=== PATIENT | male | born 1960 | race Caucasian/White ===

== ENCOUNTER 2019-01-10 13:52 | Inpatient (IN) | payer MEDICAID ==
[~2019-01-10] VITALS: Ht 172.7 cm; Wt 72.6 kg
[2019-01-10 14:53] LABS: GLUCOSE,POINT OF CARE 475 MG/DL (70-110)
[2019-01-10] MEDS ORDERED: SODIUM CHLORIDE 0.9% 1,000 ML IV ONE (15:45)
[2019-01-10] MEDS ORDERED: INSULIN REGULAR, HUMAN 100 UNITS/ML IVP ONE (15:45)
[2019-01-10 16:13] LABS: BASOPHILS % (AUTO) 0.6 % (0.0-2.0); EOSINOPHILS % (AUTO) 0.8 % (1.0-6.0); HEMATOCRIT 34.1 % (41-53); HEMOGLOBIN 10.6 g/dL (13.5-17.5); LYMPHOCYTES # (AUTO) 2.6 K/uL (1.0-4.8); LYMPHOCYTES % (AUTO) 27.7 % (22.0-44.0); MEAN CORPUSCULAR HEMOGLOBIN 22.7 pg (26.0-34.0); MEAN CORPUSCULAR HGB CONC 31.1 G/dL (31.0-37.0); MEAN CORPUSCULAR VOLUME 73 fL (80-100); MONOCYTES # (AUTO) 0.8 K/uL (0.1-1.0); MONOCYTES % (AUTO) 8.2 % (2.0-9.0); NEUTROPHILS % (AUTO) 62.7 % (40.0-70.0); PLATELET COUNT (AUTO) 280 K/uL (150-450); RED BLOOD CELL COUNT(AUTO) 4.67 MIL/uL (4.50-5.90); RED CELL DISTRIBUTION WIDTH 18.2 % (11.5-14.5)
[2019-01-10 16:19] LABS: GLUCOSE,POINT OF CARE 438 MG/DL (70-110)
[2019-01-10 16:27] LABS: ALANINE AMINOTRANSFERASE 80 U/L (12-78); ALBUMIN 3.2 g/dL (3.4-5.0); ALKALINE PHOSPHATASE 69 U/L (46-116); ANION GAP 7 mmol/L (8-16); ASPARTATE AMINOTRANSFERASE 44 U/L (15-37); BILIRUBIN,TOTAL 0.3 mg/dL (0.1-1.0); CALCIUM, TOTAL 9.6 mg/dL (8.8-10.5); CARBON DIOXIDE 27 mmol/L (22-29); CHLORIDE 94 mmol/L (98-107); CREATININE 1.02 mg/dL (0.60-1.30); GLOMERULAR FILTR. RATE CALC > 60 mL/min (>60); POTASSIUM 3.8 mmol/L (3.5-5.1); SODIUM SERUM 128 mmol/L (136-145); UREA NITROGEN, BLOOD 19 mg/dL (7-18)
[2019-01-10 16:31] LABS: GLUCOSE,RANDOM 484 mg/dL (70-110)
[2019-01-10] MEDS ORDERED: PROMETHAZINE HCL 25 MG TABLET PO PRN (17:15)
[2019-01-10] MEDS ORDERED: TUBERCULIN, PURIFIED PROTEIN DERIVATIVE 5 TU/0.1 ML SYRINGE ID ONE (17:15)
[2019-01-10] MEDS ORDERED: HALOPERIDOL 5 MG TABLET PO PRN (17:15)
[2019-01-10] MEDS ORDERED: MAGNESIUM HYDROXIDE SUSPENSION 30 ML UDCUP PO PRN (17:15)
[2019-01-10] MEDS ORDERED: ACETAMINOPHEN 325 MG TABLET PO PRN (17:15)
[2019-01-10] MEDS ORDERED: GuaiFENesin/D-METHORPHAN [SUGAR-FREE] 200-20MG/10 ML SYRUP UDCUP PO PRN (17:15)
[2019-01-10] MEDS ORDERED: MAG HYDROX/AL HYDROX/SIMETH ES 30 ML SUSPENSION UDCUP PO PRN (17:15)
[2019-01-10 17:24] LABS: GLUCOSE,POINT OF CARE 169 MG/DL (70-110)
[2019-01-10 17:34] LABS: AMPHET/METH SCREEN,URINE POSITIVE (NEGATIVE); BARBITURATE SCREEN, URINE NEGATIVE (NEGATIVE); BENZODIAZEPINES SCREEN,URINE NEGATIVE (NEGATIVE); CANNABINOID SCREEN,URINE NEGATIVE (NEGATIVE); COCAINE SCREEN,URINE NEGATIVE (NEGATIVE); METHADONE SCREEN, URINE NEGATIVE (NEGATIVE); OPIATE SCREEN,URINE POSITIVE (NEGATIVE)
[2019-01-10 17:53] LABS: PHENCYCLIDINE SCREEN,URINE NEGATIVE (NEGATIVE)
[2019-01-10] MEDS ORDERED: HALOPERIDOL 10 MG TABLET PO SCH (21:00)
[2019-01-10] MEDS: THIAMINE HCL 100 MG TABLET PO SCH (21:12)
[2019-01-10 21:19] LABS: GLUCOSE,POINT OF CARE 205 MG/DL (70-110)
[2019-01-11 00:20] VITALS: BP 163/101
[2019-01-11 00:50] VITALS: BP 151/94
[2019-01-11] MEDS: LORazepam 2 MG TABLET PO PRN ×2 (00:55→08:16)
[2019-01-11] MEDS: ZOLPIDEM TARTRATE 10 MG TABLET PO PRN (00:55)
[2019-01-11] MEDS ORDERED: PNEUMOCOCCAL VACCINE POLYVALENT 0.5 ML VIAL [PPSV23] IM ONE (05:00)
[2019-01-11 05:24] LABS: GLUCOMETER DEV NAME(LOC) 3E.I; GLUCOSE,POINT OF CARE 320 MG/DL (70-110)
[2019-01-11] MEDS ORDERED: DEXTROSE 50%-WATER 25 GM/50 ML SYRINGE IVP PRN ×2 (07:00→15:15)
[2019-01-11] MEDS ORDERED: INSULIN LISPRO 100 UNITS/ML SQ PRN (07:00)
[2019-01-11] MEDS: FOLIC ACID 1 MG TABLET PO SCH (08:16)
[2019-01-11] MEDS: NALTREXONE HCL 50 MG TABLET PO SCH (08:16)
[2019-01-11] MEDS: LOPERAMIDE HCL 2 MG CAPSULE PO PRN ×2 (08:16→09:40)
[2019-01-11] MEDS: THIAMINE HCL 100 MG TABLET PO SCH ×2 (08:17→16:42)
[2019-01-11] MEDS: HydrOXYzine PAMOATE 50 MG CAPSULE PO PRN (08:18)
[2019-01-11 09:00] VITALS: BP 133/84
[2019-01-11] MEDS ORDERED: FLUoxetine HCL 10 MG CAPSULE PO SCH (09:00)
[2019-01-11] MEDS ORDERED: MULTIVITAMINS WITH MINERALS, THERAPEUTIC TABLET PO SCH (09:00)
[2019-01-11 15:08] LABS: GLUCOMETER DEV NAME(LOC) 3E.I; GLUCOSE,POINT OF CARE 538 MG/DL (70-110)
[2019-01-11] MEDS ORDERED: INSULIN LISPRO 100 UNITS/ML SQ ONE (15:30)
[2019-01-11 16:16] VITALS: BP 136/76
[2019-01-11] MEDS: MetFORMIN HCL 500 MG TABLET PO SCH (16:42)
[2019-01-11] MEDS: NYSTATIN 15 GM POWDER BOTTLE TP SCH (16:42)
[2019-01-11 16:53] LABS: GLUCOMETER DEV NAME(LOC) 3E.I; GLUCOSE,POINT OF CARE 302 MG/DL (70-110)
[2019-01-11] MEDS: INSULIN LISPRO 100 UNITS/ML SQ PRN (17:41)
[2019-01-11] MEDS ORDERED: INSULIN GLARGINE,HUM.REC.ANLOG 100 UNITS/ML SQ SCH (21:00)
[2019-01-11] MEDS ORDERED: FluPHENAZine HCL 10 MG TABLET PO SCH (21:00)
[2019-01-11 21:14] LABS: GLUCOMETER DEV NAME(LOC) 3E.I; GLUCOSE,POINT OF CARE 78 MG/DL (70-110)
[2019-01-12 05:32] VITALS: BP 150/88
[2019-01-12] MEDS: LORazepam 2 MG TABLET PO PRN ×3 (05:36→20:22)
[2019-01-12 05:39] LABS: GLUCOMETER DEV NAME(LOC) 3E.I; GLUCOSE,POINT OF CARE 462 MG/DL (70-110)
[2019-01-12] MEDS: MetFORMIN HCL 500 MG TABLET PO SCH ×2 (06:56→16:35)
[2019-01-12] MEDS: NALTREXONE HCL 50 MG TABLET PO SCH (08:12)
[2019-01-12] MEDS: FOLIC ACID 1 MG TABLET PO SCH (08:12)
[2019-01-12] MEDS: ZINC SULFATE 220 MG CAPSULE PO SCH (08:12)
[2019-01-12] MEDS: THIAMINE HCL 100 MG TABLET PO SCH ×2 (08:12→16:34)
[2019-01-12] MEDS: FLUoxetine HCL 20 MG CAPSULE PO SCH (08:12)
[2019-01-12] MEDS: ASCORBIC ACID 500 MG TABLET PO SCH (08:12)
[2019-01-12] MEDS: HydrOXYzine PAMOATE 50 MG CAPSULE PO PRN ×2 (08:12→13:16)
[2019-01-12] MEDS: MULTIVITAMINS, THERAPEUTIC TABLET PO SCH (08:21)
[2019-01-12] MEDS: NYSTATIN 15 GM POWDER BOTTLE TP SCH ×2 (08:30→16:36)
[2019-01-12] MEDS: INSULIN GLARGINE,HUM.REC.ANLOG 100 UNITS/ML SQ SCH ×2 (08:37→17:36)
[2019-01-12] MEDS ORDERED: ASCORBIC ACID 500 MG TABLET PO SCH (09:00)
[2019-01-12 09:49] VITALS: BP 129/89
[2019-01-12] MEDS: LOPERAMIDE HCL 2 MG CAPSULE PO PRN ×3 (10:45→16:34)
[2019-01-12 11:44] LABS: GLUCOMETER DEV NAME(LOC) 3E.I; GLUCOSE,POINT OF CARE 337 MG/DL (70-110)
[2019-01-12] MEDS: INSULIN LISPRO 100 UNITS/ML SQ PRN ×2 (11:47→17:36)
[2019-01-12] MEDS: FluPHENAZine HCL 5 MG TABLET PO PRN (13:18)
[2019-01-12 16:17] VITALS: BP 144/84
[2019-01-12] MEDS: MUPIROCIN CALCIUM 2% 22 GM OINTMENT NASAL SCH (16:36)
[2019-01-12 16:44] LABS: GLUCOMETER DEV NAME(LOC) 3E.I; GLUCOSE,POINT OF CARE 334 MG/DL (70-110)
[2019-01-12] MEDS: FluPHENAZine HCL 10 MG TABLET PO SCH (20:22)
[2019-01-12 20:53] LABS: GLUCOMETER DEV NAME(LOC) 3E.I; GLUCOSE,POINT OF CARE 127 MG/DL (70-110)
[2019-01-13 02:10] VITALS: BP 136/71
[2019-01-13] MEDS: LOPERAMIDE HCL 2 MG CAPSULE PO PRN (02:13)
[2019-01-13] MEDS: MetFORMIN HCL 500 MG TABLET PO SCH (07:05)
[2019-01-13 09:23] LABS: GLUCOMETER DEV NAME(LOC) 3E.I; GLUCOSE,POINT OF CARE 318 MG/DL (70-110)
[2019-01-13] MEDS: THIAMINE HCL 100 MG TABLET PO SCH ×2 (09:26→17:38)
[2019-01-13] MEDS: MULTIVITAMINS, THERAPEUTIC TABLET PO SCH (09:26)
[2019-01-13] MEDS: FluPHENAZine HCL 5 MG TABLET PO PRN ×2 (09:26→13:36)
[2019-01-13] MEDS: FLUoxetine HCL 20 MG CAPSULE PO SCH (09:26)
[2019-01-13] MEDS: NALTREXONE HCL 50 MG TABLET PO SCH (09:26)
[2019-01-13] MEDS: FOLIC ACID 1 MG TABLET PO SCH (09:26)
[2019-01-13] MEDS: LORazepam 2 MG TABLET PO PRN ×2 (09:26→13:35)
[2019-01-13] MEDS: MUPIROCIN CALCIUM 2% 22 GM OINTMENT NASAL SCH ×2 (09:26→17:41)
[2019-01-13] MEDS: ZINC SULFATE 220 MG CAPSULE PO SCH (09:27)
[2019-01-13] MEDS: NYSTATIN 15 GM POWDER BOTTLE TP SCH ×2 (09:27→17:38)
[2019-01-13] MEDS: ASCORBIC ACID 500 MG TABLET PO SCH (09:28)
[2019-01-13] MEDS: HydrOXYzine PAMOATE 50 MG CAPSULE PO PRN ×2 (09:29→13:35)
[2019-01-13] MEDS: INSULIN GLARGINE,HUM.REC.ANLOG 100 UNITS/ML SQ SCH ×2 (09:34→17:44)
[2019-01-13 12:04] LABS: GLUCOMETER DEV NAME(LOC) 3E.I; GLUCOSE,POINT OF CARE 412 MG/DL (70-110)
[2019-01-13] MEDS: INSULIN LISPRO 100 UNITS/ML SQ PRN ×3 (12:23→20:33)
[2019-01-13 16:22] VITALS: BP 134/78
[2019-01-13 16:44] LABS: GLUCOMETER DEV NAME(LOC) 3E.I; GLUCOSE,POINT OF CARE 153 MG/DL (70-110)
[2019-01-13 20:33] LABS: GLUCOMETER DEV NAME(LOC) 3E.I; GLUCOSE,POINT OF CARE 223 MG/DL (70-110)
[2019-01-13] MEDS: FluPHENAZine HCL 10 MG TABLET PO SCH (20:35)
[2019-01-14 03:58] VITALS: BP 149/91
[2019-01-14] MEDS: LORazepam 2 MG TABLET PO PRN ×4 (03:59→18:12)
[2019-01-14 05:54] LABS: GLUCOMETER DEV NAME(LOC) 3E.I; GLUCOSE,POINT OF CARE 269 MG/DL (70-110)
[2019-01-14] MEDS: INSULIN LISPRO 100 UNITS/ML SQ PRN ×3 (07:13→16:38)
[2019-01-14 08:22] VITALS: BP 148/84
[2019-01-14] MEDS: MUPIROCIN CALCIUM 2% 22 GM OINTMENT NASAL SCH ×2 (08:28→16:57)
[2019-01-14] MEDS: FLUoxetine HCL 20 MG CAPSULE PO SCH (08:29)
[2019-01-14] MEDS: ASCORBIC ACID 500 MG TABLET PO SCH (08:29)
[2019-01-14] MEDS: THIAMINE HCL 100 MG TABLET PO SCH ×2 (08:29→16:28)
[2019-01-14] MEDS: FOLIC ACID 1 MG TABLET PO SCH (08:29)
[2019-01-14] MEDS: NALTREXONE HCL 50 MG TABLET PO SCH (08:29)
[2019-01-14] MEDS: MULTIVITAMINS, THERAPEUTIC TABLET PO SCH (08:29)
[2019-01-14] MEDS: FluPHENAZine HCL 5 MG TABLET PO PRN ×3 (08:29→18:15)
[2019-01-14] MEDS: ZINC SULFATE 220 MG CAPSULE PO SCH (08:30)
[2019-01-14] MEDS: NYSTATIN 15 GM POWDER BOTTLE TP SCH ×2 (08:31→16:57)
[2019-01-14] MEDS: HydrOXYzine PAMOATE 50 MG CAPSULE PO PRN ×2 (08:33→13:09)
[2019-01-14] MEDS: INSULIN GLARGINE,HUM.REC.ANLOG 100 UNITS/ML SQ SCH ×2 (08:38→16:38)
[2019-01-14 12:03] LABS: GLUCOMETER DEV NAME(LOC) 3E.I; GLUCOSE,POINT OF CARE 286 MG/DL (70-110)
[2019-01-14 16:12] VITALS: BP 138/78
[2019-01-14 16:39] LABS: GLUCOMETER DEV NAME(LOC) 3E.I; GLUCOSE,POINT OF CARE 353 MG/DL (70-110)
[2019-01-14] MEDS: FluPHENAZine HCL 10 MG TABLET PO SCH (20:16)
[2019-01-15] MEDS: LOPERAMIDE HCL 2 MG CAPSULE PO PRN (01:09)
[2019-01-15 06:10] LABS: GLUCOMETER DEV NAME(LOC) 3E.I; GLUCOSE,POINT OF CARE 273 MG/DL (70-110)
[2019-01-15] MEDS: FLUoxetine HCL 20 MG CAPSULE PO SCH (08:20)
[2019-01-15] MEDS: NALTREXONE HCL 50 MG TABLET PO SCH (08:20)
[2019-01-15] MEDS: THIAMINE HCL 100 MG TABLET PO SCH ×2 (08:21→16:31)
[2019-01-15] MEDS: MULTIVITAMINS, THERAPEUTIC TABLET PO SCH (08:21)
[2019-01-15] MEDS: ZINC SULFATE 220 MG CAPSULE PO SCH (08:21)
[2019-01-15] MEDS: FOLIC ACID 1 MG TABLET PO SCH (08:21)
[2019-01-15] MEDS: LORazepam 2 MG TABLET PO PRN ×3 (08:21→19:37)
[2019-01-15] MEDS: ASCORBIC ACID 500 MG TABLET PO SCH (08:22)
[2019-01-15] MEDS: NYSTATIN 15 GM POWDER BOTTLE TP SCH ×2 (08:23→16:31)
[2019-01-15] MEDS: MUPIROCIN CALCIUM 2% 22 GM OINTMENT NASAL SCH ×2 (08:23→16:31)
[2019-01-15] MEDS: INSULIN GLARGINE,HUM.REC.ANLOG 100 UNITS/ML SQ SCH ×2 (08:36→16:43)
[2019-01-15 08:43] LABS: GLUCOMETER DEV NAME(LOC) 3E.I; GLUCOSE,POINT OF CARE 375 MG/DL (70-110)
[2019-01-15] MEDS: INSULIN LISPRO 100 UNITS/ML SQ PRN ×4 (14:34→21:09)
[2019-01-15 16:24] VITALS: BP 155/96
[2019-01-15] MEDS: FluPHENAZine HCL 5 MG TABLET PO PRN (16:30)
[2019-01-15] MEDS: HydrOXYzine PAMOATE 50 MG CAPSULE PO PRN (16:31)
[2019-01-15 16:49] LABS: GLUCOMETER DEV NAME(LOC) 3E.I; GLUCOSE,POINT OF CARE 418 MG/DL (70-110)
[2019-01-15 20:43] LABS: GLUCOMETER DEV NAME(LOC) 3E.I; GLUCOSE,POINT OF CARE 292 MG/DL (70-110)
[2019-01-15] MEDS: FluPHENAZine HCL 10 MG TABLET PO SCH (21:10)
[2019-01-16] MEDS: ZOLPIDEM TARTRATE 10 MG TABLET PO PRN ×2 (00:12→22:44)
[2019-01-16] MEDS: LORazepam 2 MG TABLET PO PRN ×4 (00:12→18:12)
[2019-01-16 05:48] LABS: GLUCOMETER DEV NAME(LOC) 3E.I; GLUCOSE,POINT OF CARE 225 MG/DL (70-110)
[2019-01-16 06:23] VITALS: BP 122/70
[2019-01-16 08:00] VITALS: BP 135/75
[2019-01-16] MEDS: THIAMINE HCL 100 MG TABLET PO SCH ×2 (08:14→16:13)
[2019-01-16] MEDS: FOLIC ACID 1 MG TABLET PO SCH (08:14)
[2019-01-16] MEDS: FLUoxetine HCL 20 MG CAPSULE PO SCH (08:14)
[2019-01-16] MEDS: MULTIVITAMINS, THERAPEUTIC TABLET PO SCH (08:14)
[2019-01-16] MEDS: NALTREXONE HCL 50 MG TABLET PO SCH (08:15)
[2019-01-16] MEDS: MUPIROCIN CALCIUM 2% 22 GM OINTMENT NASAL SCH ×2 (08:15→16:25)
[2019-01-16] MEDS: ASCORBIC ACID 500 MG TABLET PO SCH (08:15)
[2019-01-16] MEDS: NYSTATIN 15 GM POWDER BOTTLE TP SCH ×2 (08:16→16:13)
[2019-01-16] MEDS: ZINC SULFATE 220 MG CAPSULE PO SCH (08:16)
[2019-01-16] MEDS: INSULIN GLARGINE,HUM.REC.ANLOG 100 UNITS/ML SQ SCH ×2 (08:53→17:22)
[2019-01-16 11:29] LABS: GLUCOMETER DEV NAME(LOC) 3E.I; GLUCOSE,POINT OF CARE 316 MG/DL (70-110)
[2019-01-16 12:20] VITALS: BP 130/75
[2019-01-16] MEDS: FluPHENAZine HCL 5 MG TABLET PO PRN (12:23)
[2019-01-16] MEDS: INSULIN LISPRO 100 UNITS/ML SQ PRN ×2 (12:25→17:22)
[2019-01-16 16:06] VITALS: BP 124/70
[2019-01-16] MEDS: FluPHENAZine HCL 10 MG TABLET PO SCH (20:31)
[2019-01-16 23:53] LABS: GLUCOMETER DEV NAME(LOC) 3E.I; GLUCOSE,POINT OF CARE 245 MG/DL (70-110)
[2019-01-17 05:34] LABS: GLUCOMETER DEV NAME(LOC) 3E.I; GLUCOSE,POINT OF CARE 282 MG/DL (70-110)
[2019-01-17] MEDS: LORazepam 2 MG TABLET PO PRN ×4 (05:50→21:49)
[2019-01-17 06:48] VITALS: BP 126/84
[2019-01-17] MEDS: MULTIVITAMINS, THERAPEUTIC TABLET PO SCH (08:15)
[2019-01-17] MEDS: FLUoxetine HCL 20 MG CAPSULE PO SCH (08:15)
[2019-01-17] MEDS: FOLIC ACID 1 MG TABLET PO SCH (08:15)
[2019-01-17] MEDS: ZINC SULFATE 220 MG CAPSULE PO SCH (08:15)
[2019-01-17] MEDS: NALTREXONE HCL 50 MG TABLET PO SCH (08:15)
[2019-01-17] MEDS: MUPIROCIN CALCIUM 2% 22 GM OINTMENT NASAL SCH (08:15)
[2019-01-17] MEDS: THIAMINE HCL 100 MG TABLET PO SCH ×2 (08:15→16:16)
[2019-01-17] MEDS: ASCORBIC ACID 500 MG TABLET PO SCH (08:16)
[2019-01-17] MEDS: NYSTATIN 15 GM POWDER BOTTLE TP SCH ×2 (08:19→16:23)
[2019-01-17] MEDS: LOPERAMIDE HCL 2 MG CAPSULE PO PRN ×2 (08:19→16:18)
[2019-01-17] MEDS: INSULIN GLARGINE,HUM.REC.ANLOG 100 UNITS/ML SQ SCH ×2 (08:36→17:31)
[2019-01-17] MEDS: FluPHENAZine HCL 5 MG TABLET PO PRN (08:55)
[2019-01-17 10:44] VITALS: BP 140/78
[2019-01-17 11:49] LABS: GLUCOMETER DEV NAME(LOC) 3E.I; GLUCOSE,POINT OF CARE 382 MG/DL (70-110)
[2019-01-17] MEDS: INSULIN LISPRO 100 UNITS/ML SQ PRN ×2 (13:02→17:32)
[2019-01-17 16:05] VITALS: BP 127/70
[2019-01-17 16:43] LABS: GLUCOMETER DEV NAME(LOC) 3E.I; GLUCOSE,POINT OF CARE 203 MG/DL (70-110)
[2019-01-17 19:58] LABS: GLUCOMETER DEV NAME(LOC) 3E.I; GLUCOSE,POINT OF CARE 231 MG/DL (70-110)
[2019-01-17] MEDS: FluPHENAZine HCL 10 MG TABLET PO SCH (20:15)
[2019-01-18] MEDS: INSULIN GLARGINE,HUM.REC.ANLOG 100 UNITS/ML SQ SCH ×2 (09:00→17:12)
[2019-01-18] MEDS: NYSTATIN 15 GM POWDER BOTTLE TP SCH ×2 (09:00→17:05)
[2019-01-18] MEDS: ZINC SULFATE 220 MG CAPSULE PO SCH (09:09)
[2019-01-18] MEDS: FLUoxetine HCL 20 MG CAPSULE PO SCH (09:09)
[2019-01-18] MEDS: ASCORBIC ACID 500 MG TABLET PO SCH (09:10)
[2019-01-18] MEDS: MULTIVITAMINS, THERAPEUTIC TABLET PO SCH (09:10)
[2019-01-18] MEDS: FluPHENAZine HCL 5 MG TABLET PO PRN ×2 (09:10→13:38)
[2019-01-18] MEDS: FOLIC ACID 1 MG TABLET PO SCH (09:10)
[2019-01-18] MEDS: THIAMINE HCL 100 MG TABLET PO SCH ×2 (09:10→17:05)
[2019-01-18] MEDS: NALTREXONE HCL 50 MG TABLET PO SCH (09:10)
[2019-01-18] MEDS: LORazepam 2 MG TABLET PO PRN ×3 (09:10→21:00)
[2019-01-18] MEDS ORDERED: INSULIN LISPRO 100 UNITS/ML SQ ONE (11:30)
[2019-01-18 11:34] LABS: GLUCOMETER DEV NAME(LOC) 3E.I; GLUCOSE,POINT OF CARE 420 MG/DL (70-110)
[2019-01-18] MEDS: INSULIN LISPRO 100 UNITS/ML SQ PRN ×3 (11:39→21:02)
[2019-01-18 12:46] VITALS: BP 122/73
[2019-01-18 16:29] LABS: GLUCOMETER DEV NAME(LOC) 3E.I; GLUCOSE,POINT OF CARE 196 MG/DL (70-110)
[2019-01-18 17:05] VITALS: BP 129/78
[2019-01-18] MEDS: FluPHENAZine HCL 10 MG TABLET PO SCH (21:01)
[2019-01-18 21:16] LABS: GLUCOMETER DEV NAME(LOC) 3E.I; GLUCOSE,POINT OF CARE 236 MG/DL (70-110)
[2019-01-19 08:06] VITALS: BP 123/70
[2019-01-19] MEDS: NYSTATIN 15 GM POWDER BOTTLE TP SCH ×2 (09:00→16:30)
[2019-01-19] MEDS: FLUoxetine HCL 20 MG CAPSULE PO SCH (09:23)
[2019-01-19] MEDS: LORazepam 2 MG TABLET PO PRN ×3 (09:23→20:58)
[2019-01-19] MEDS: MULTIVITAMINS, THERAPEUTIC TABLET PO SCH (09:23)
[2019-01-19] MEDS: NALTREXONE HCL 50 MG TABLET PO SCH (09:23)
[2019-01-19] MEDS: FluPHENAZine HCL 5 MG TABLET PO PRN ×2 (09:23→13:42)
[2019-01-19] MEDS: FOLIC ACID 1 MG TABLET PO SCH (09:23)
[2019-01-19] MEDS: THIAMINE HCL 100 MG TABLET PO SCH ×2 (09:23→16:30)
[2019-01-19] MEDS: ASCORBIC ACID 500 MG TABLET PO SCH (09:23)
[2019-01-19] MEDS: LOPERAMIDE HCL 2 MG CAPSULE PO PRN ×3 (09:31→15:05)
[2019-01-19] MEDS: INSULIN GLARGINE,HUM.REC.ANLOG 100 UNITS/ML SQ SCH ×2 (09:34→17:11)
[2019-01-19 09:38] LABS: GLUCOMETER DEV NAME(LOC) 3E.I; GLUCOSE,POINT OF CARE 276 MG/DL (70-110)
[2019-01-19 11:39] LABS: GLUCOMETER DEV NAME(LOC) 3E.I; GLUCOSE,POINT OF CARE 286 MG/DL (70-110)
[2019-01-19] MEDS: INSULIN LISPRO 100 UNITS/ML SQ PRN ×2 (11:48→17:12)
[2019-01-19] MEDS ORDERED: NALT50TA PO (12:34)
[2019-01-19] MEDS ORDERED: FLUP10 PO ×2 (12:34→14:58)
[2019-01-19] MEDS ORDERED: FLUO-191 PO ×2 (12:34→14:58)
[2019-01-19] MEDS ORDERED: INSLAN SQ (14:58)
[2019-01-19] MEDS ORDERED: NALT50TA6 PO (14:58)
[2019-01-19] MEDS ORDERED: THIA100T67 PO (14:58)
[2019-01-19] MEDS ORDERED: ASCO500 PO (14:58)
[2019-01-19] MEDS ORDERED: NYST30CR9 TP (14:58)
[2019-01-19] MEDS ORDERED: FOLI1 PO (14:58)
[2019-01-19] MEDS ORDERED: MULT-1239 PO (14:58)
[2019-01-19 16:04] VITALS: BP 121/83
[2019-01-19 16:34] LABS: GLUCOMETER DEV NAME(LOC) 3E.I; GLUCOSE,POINT OF CARE 257 MG/DL (70-110)
[2019-01-19] MEDS: FluPHENAZine HCL 10 MG TABLET PO SCH (20:41)
[2019-01-19 20:57] VITALS: BP 115/69
[2019-01-19 20:59] LABS: GLUCOMETER DEV NAME(LOC) 3E.I; GLUCOSE,POINT OF CARE 170 MG/DL (70-110)
[2019-01-20] MEDS: NYSTATIN 15 GM POWDER BOTTLE TP SCH (09:00)
[2019-01-20] MEDS: INSULIN GLARGINE,HUM.REC.ANLOG 100 UNITS/ML SQ SCH (09:00)
[2019-01-20] MEDS: FluPHENAZine HCL 5 MG TABLET PO PRN (09:19)
[2019-01-20] MEDS: FLUoxetine HCL 20 MG CAPSULE PO SCH (09:19)
[2019-01-20] MEDS: MULTIVITAMINS, THERAPEUTIC TABLET PO SCH (09:20)
[2019-01-20] MEDS: LORazepam 2 MG TABLET PO PRN (09:20)
[2019-01-20] MEDS: FOLIC ACID 1 MG TABLET PO SCH (09:20)
[2019-01-20] MEDS: LOPERAMIDE HCL 2 MG CAPSULE PO PRN (09:20)
[2019-01-20] MEDS: NALTREXONE HCL 50 MG TABLET PO SCH (09:20)
[2019-01-20] MEDS: ASCORBIC ACID 500 MG TABLET PO SCH (09:20)
== END 2019-01-20 11:00 | disposition home or self-care (01) | DRG 750 ==
LOC: EMS 13:53 → 3EI 01-11 00:09
PROVIDERS: ADMIT Psychiatry & Neurology Psychiatry; ATTEND Psychiatry & Neurology Psychiatry
DX: F25.1 Schizoaffective disorder, depressive type (principal); E11.51 Type 2 diabetes mellitus with diabetic peripheral angiopathy without gangrene; R45.851 Suicidal ideations; E11.65 Type 2 diabetes mellitus with hyperglycemia; B35.6 Tinea cruris; F15.10 Other stimulant abuse, uncomplicated; B36.9 Superficial mycosis, unspecified; F17.210 Nicotine dependence, cigarettes, uncomplicated; F19.959 Other psychoactive substance use, unspecified with psychoactive substance-induced psychotic disorder, unspecified; F32.9 Major depressive disorder, single episode, unspecified; R26.9 Unspecified abnormalities of gait and mobility; F41.9 Anxiety disorder, unspecified; F90.9 Attention-deficit hyperactivity disorder, unspecified type; Z59.0 Homelessness; Z89.512 Acquired absence of left leg below knee; Z89.511 Acquired absence of right leg below knee; Z91.14 Patient's other noncompliance with medication regimen; Z79.4 Long term (current) use of insulin
CPT/HCPCS: 87081; G0480; J1815; J7030

== ENCOUNTER 2019-03-02 04:50 | Emergency (ER) | payer MEDICAID ==
[~2019-03-02] VITALS: Ht 177.8 cm; Wt 77.3 kg
[~2019-03-02 04:50] MED LIST: ASCO500 PO; FLUO-191 PO; FLUP10 PO; INSLAN SQ; MULT-1239 PO; NALT50TA PO
[2019-03-02] MEDS ORDERED: MORPHINE SULFATE 4 MG/ML SYRINGE IM ONE (05:00)
[2019-03-02] MEDS ORDERED: SODIUM CHLORIDE 0.9% 1,000 ML IV ONE ×2 (05:00→07:00)
[2019-03-02] MEDS ORDERED: DOXY25SU3 PO (05:07)
[2019-03-02] MEDS ORDERED: CEPH500 PO (05:07)
[2019-03-02] MEDS ORDERED: INSU100V36 (05:07)
[2019-03-02] MEDS: ONDANSETRON HCL 4 MG/2 ML VIAL IM ONE ×2 (05:12→05:38)
[2019-03-02] MEDS ORDERED: INSULIN REGULAR, HUMAN 100 UNITS/ML IVP ONE (05:15)
[2019-03-02] MEDS ORDERED: LORazepam 2 MG/ML VIAL IVP ONE (05:15)
[2019-03-02] MEDS ORDERED: LORazepam 2 MG/ML VIAL IM ONE (05:30)
[2019-03-02] MEDS ORDERED: ONDANSETRON HCL 4 MG/2 ML VIAL IVP ONE (05:45)
[2019-03-02 06:07] LABS: BASOPHILS % (AUTO) 0.5 % (0.0-2.0); EOSINOPHILS % (AUTO) 0.8 % (1.0-6.0); HEMATOCRIT 39.4 % (41-53); HEMOGLOBIN 12.7 g/dL (13.5-17.5); LYMPHOCYTES # (AUTO) 1.8 K/uL (1.0-4.8); LYMPHOCYTES % (AUTO) 26.2 % (22.0-44.0); MEAN CORPUSCULAR HEMOGLOBIN 24.2 pg (26.0-34.0); MEAN CORPUSCULAR HGB CONC 32.1 G/dL (31.0-37.0); MEAN CORPUSCULAR VOLUME 75 fL (80-100); MONOCYTES # (AUTO) 0.5 K/uL (0.1-1.0); MONOCYTES % (AUTO) 7.3 % (2.0-9.0); NEUTROPHILS # (AUTO) 4.4 K/uL (1.8-7.7); NEUTROPHILS % (AUTO) 65.2 % (40.0-70.0); PLATELET COUNT (AUTO) 174 K/uL (150-450); RED BLOOD CELL COUNT(AUTO) 5.23 MIL/uL (4.50-5.90)
[2019-03-02 06:45] LABS: GLUCOSE,POINT OF CARE 363 MG/DL (70-110)
[2019-03-02 06:46] LABS: LACTIC ACID 3.8 mmol/L (0.4-2.0)
[2019-03-02 06:48] LABS: ALANINE AMINOTRANSFERASE 99 U/L (12-78); ALBUMIN 3.5 g/dL (3.4-5.0); ALKALINE PHOSPHATASE 77 U/L (46-116); ANION GAP 14 mmol/L (8-16); ASPARTATE AMINOTRANSFERASE 84 U/L (15-37); BILIRUBIN,TOTAL 0.6 mg/dL (0.1-1.0); CALCIUM, TOTAL 9.7 mg/dL (8.8-10.5); CARBON DIOXIDE 24 mmol/L (22-29); CHLORIDE 93 mmol/L (98-107); CREATININE 1.16 mg/dL (0.60-1.30); GLOMERULAR FILTR. RATE CALC > 60 mL/min (>60); LIPASE 171 U/L (73-393); POTASSIUM 3.7 mmol/L (3.5-5.1); SODIUM SERUM 131 mmol/L (136-145); TOTAL PROTEIN, SERUM 7.5 g/dL (6.4-8.2)
[2019-03-02 06:49] LABS: GLUCOSE,RANDOM 502 mg/dL (70-110)
[2019-03-02 06:56] LABS: UREA NITROGEN, BLOOD 12 mg/dL (7-18)
[2019-03-02 08:23] LABS: AMPHET/METH SCREEN,URINE POSITIVE (NEGATIVE); APPEARANCE,URINE CLOUDY (CLEAR); BARBITURATE SCREEN, URINE NEGATIVE (NEGATIVE); BENZODIAZEPINES SCREEN,URINE NEGATIVE (NEGATIVE); BILIRUBIN,URINE NEGATIVE (NEGATIVE); CANNABINOID SCREEN,URINE NEGATIVE (NEGATIVE); COCAINE SCREEN,URINE NEGATIVE (NEGATIVE); GLUCOSE, URINE (UA) >=1000 mg/dL (NEGATIVE); KETONES,URINE 40 mg/dL (NEGATIVE); LEUKOCYTE ESTERASE ,URINE MODERATE (NEGATIVE); METHADONE SCREEN, URINE NEGATIVE (NEGATIVE); NITRATE,URINE NEGATIVE (NEGATIVE); OCCULT BLOOD,URINE MODERATE (NEGATIVE); OPIATE SCREEN,URINE POSITIVE (NEGATIVE); PH,URINE 7.5 (5.0-8.0); PROTEIN,URINE TRACE (NEGATIVE)
[2019-03-02 08:24] LABS: PHENCYCLIDINE SCREEN,URINE NEGATIVE (NEGATIVE)
[2019-03-02 08:35] LABS: BACTERIA,URINE Moderate /HPF (None Seen); RBC,URINE 26-50 /HPF (0-2); WBC,URINE 26-50 /HPF (0-5)
[2019-03-02] MEDS ORDERED: CefTRIAXone 1 GM/DEXTROSE 50 ML IV ONE (09:00)
[2019-03-02 10:02] LABS: GLUCOSE,POINT OF CARE 334 MG/DL (70-110)
[2019-03-02 13:05] VITALS: BP 132/85
== END 2019-03-02 13:56 | disposition home or self-care (01) ==
LOC: EMS 04:52
DX: N39.0 Urinary tract infection, site not specified (principal); E11.65 Type 2 diabetes mellitus with hyperglycemia; F11.23 Opioid dependence with withdrawal; F32.9 Major depressive disorder, single episode, unspecified; F41.9 Anxiety disorder, unspecified; F15.90 Other stimulant use, unspecified, uncomplicated; F17.210 Nicotine dependence, cigarettes, uncomplicated; Z79.4 Long term (current) use of insulin
CPT/HCPCS: 36415; 80053; 80307; 81001; 82009; 82962; 83605; 83690; 84484; 85025; 87040; 87086; 93005; 96361; 96365; 96372; 96375; 99284; J0696; J1815; J2060; J2270; J2405; J7030

== ENCOUNTER 2021-07-01 16:29 | Inpatient (IN) | payer MEDICAID, OTHER ==
[~2021-07-01] VITALS: Ht 129.5 cm; Wt 76.2 kg
[~2021-07-01 16:29] MED LIST changes: +CEPH500C3 PO; +DOXY25SU3 PO; -FLUO-191 PO; -FLUP10 PO; +INSU100V36; -MULT-1239 PO; -NALT50TA PO
[2021-07-01 19:59] LABS: COVID AG,FIA SOURCE NASOPHARYNGEAL
[2021-07-01] MEDS ORDERED: QUEtiapine FUMARATE 100 MG TABLET PO ONE (20:00)
[2021-07-01 20:02] LABS: BASOPHILS % (AUTO) 0.4 % (0.0-2.0); EOSINOPHILS % (AUTO) 5.9 % (1.0-6.0); HEMOGLOBIN 11.3 g/dL (13.5-17.5); LYMPHOCYTES # (AUTO) 1.9 K/uL (1.0-4.8); LYMPHOCYTES % (AUTO) 30.1 % (22.0-44.0); MEAN CORPUSCULAR HEMOGLOBIN 30.2 pg (26.0-34.0); MEAN CORPUSCULAR HGB CONC 34.4 G/dL (31.0-37.0); MEAN CORPUSCULAR VOLUME 88 fL (80-100); MONOCYTES # (AUTO) 0.5 K/uL (0.1-1.0); MONOCYTES % (AUTO) 7.9 % (2.0-9.0); NEUTROPHILS # (AUTO) 3.4 K/uL (1.8-7.7); NEUTROPHILS % (AUTO) 55.7 % (40.0-70.0); PLATELET COUNT (AUTO) 105 K/uL (150-450); RED BLOOD CELL COUNT(AUTO) 3.76 MIL/uL (4.50-5.90); RED CELL DISTRIBUTION WIDTH 12.8 % (11.5-14.5)
[2021-07-01 20:15] LABS: ANION GAP 6 mmol/L (8-16); CALCIUM, TOTAL 8.5 mg/dL (8.8-10.5); CARBON DIOXIDE 28 mmol/L (22-29); CHLORIDE 102 mmol/L (98-107); CREATININE 0.72 mg/dL (0.60-1.30); GLOMERULAR FILTR. RATE CALC > 60 mL/min (>60); GLUCOSE,RANDOM 285 mg/dL (70-110); POTASSIUM 4.1 mmol/L (3.5-5.1); SODIUM SERUM 136 mmol/L (136-145); UREA NITROGEN, BLOOD 16 mg/dL (7-18)
[2021-07-01 20:20] LABS: ALANINE AMINOTRANSFERASE 81 U/L (12-78); ALBUMIN 2.8 g/dL (3.4-5.0); ALKALINE PHOSPHATASE 78 U/L (46-116); ASPARTATE AMINOTRANSFERASE 61 U/L (15-37); BILIRUBIN,TOTAL 0.3 mg/dL (0.1-1.0); TOTAL PROTEIN, SERUM 6.3 g/dL (6.4-8.2)
[2021-07-02 00:45] VITALS: BP 151/85
[2021-07-02] MEDS: ASCORBIC ACID 500 MG TABLET PO SCH (08:52)
[2021-07-02] MEDS: LORazepam 2 MG TABLET PO PRN ×3 (08:52→20:55)
[2021-07-02 09:00] LABS: GLUCOMETER DEV NAME(LOC) 3EX.; GLUCOSE,POINT OF CARE 233 MG/DL (70-110)
[2021-07-02] MEDS: INSULIN GLARGINE,HUM.REC.ANLOG 100 UNITS/ML SQ SCH ×2 (09:01→16:51)
[2021-07-02] MEDS ORDERED: DEXTROSE 50%-WATER 25 GM/50 ML SYRINGE IVP PRN (10:15)
[2021-07-02] MEDS: CEPHALEXIN MONOHYDRATE 500 MG CAPSULE PO SCH ×4 (11:32→20:19)
[2021-07-02] MEDS: INSULIN LISPRO 100 UNITS/ML SQ PRN ×2 (11:34→16:55)
[2021-07-02 11:36] LABS: GLUCOMETER DEV NAME(LOC) 3EX.; GLUCOSE,POINT OF CARE 198 MG/DL (70-110)
[2021-07-02] MEDS ORDERED: MAG HYDROX/AL HYDROX/SIMETH ES 30 ML SUSPENSION UDCUP PO PRN (12:15)
[2021-07-02] MEDS ORDERED: NICOTINE 14 MG/24 HOUR PATCH TD PRN (12:15)
[2021-07-02] MEDS ORDERED: GuaiFENesin/D-METHORPHAN [SUGAR-FREE] 200-20MG/10 ML SYRUP UDCUP PO PRN (12:15)
[2021-07-02] MEDS ORDERED: MAGNESIUM HYDROXIDE SUSPENSION 30 ML UDCUP PO PRN (12:15)
[2021-07-02] MEDS ORDERED: ONDANSETRON HCL 4 MG TABLET PO PRN (12:15)
[2021-07-02] MEDS ORDERED: PETROLATUM,WHITE 28 GM JELLY TP PRN (12:15)
[2021-07-02] MEDS ORDERED: IBUPROFEN 400 MG TABLET PO PRN (12:15)
[2021-07-02] MEDS ORDERED: DOCUSATE SODIUM 100 MG CAPSULE PO PRN (12:15)
[2021-07-02] MEDS ORDERED: ALBUTEROL SULFATE HFA 90 MCG/PUFF 8 GM INHALER IH PRN (12:15)
[2021-07-02] MEDS ORDERED: LOPERAMIDE HCL 2 MG CAPSULE PO PRN (12:15)
[2021-07-02] MEDS ORDERED: CloNIDine HCL 0.1 MG TABLET PO PRN (12:15)
[2021-07-02] MEDS ORDERED: ACETAMINOPHEN 325 MG TABLET PO PRN (12:15)
[2021-07-02 16:14] VITALS: BP 140/74
[2021-07-02] MEDS: RisperiDONE 2 MG TABLET PO SCH (16:14)
[2021-07-02 17:17] LABS: GLUCOMETER DEV NAME(LOC) 3EX.; GLUCOSE,POINT OF CARE 386 MG/DL (70-110)
[2021-07-02 21:13] LABS: GLUCOMETER DEV NAME(LOC) 3EX.; GLUCOSE,POINT OF CARE 402 MG/DL (70-110)
[2021-07-02] MEDS ORDERED: INSULIN LISPRO 100 UNITS/ML SQ ONE (21:15)
[2021-07-03 05:29] LABS: GLUCOMETER DEV NAME(LOC) 3EX.; GLUCOSE,POINT OF CARE 177 MG/DL (70-110)
[2021-07-03] MEDS: INSULIN LISPRO 100 UNITS/ML SQ PRN ×4 (07:05→21:58)
[2021-07-03 07:57] LABS: CHOL/HDL RATIO 3.5 (4.2-7.3)
[2021-07-03] MEDS: CEPHALEXIN MONOHYDRATE 500 MG CAPSULE PO SCH ×4 (08:21→20:19)
[2021-07-03] MEDS: RisperiDONE 2 MG TABLET PO SCH ×2 (08:21→16:18)
[2021-07-03] MEDS: ASCORBIC ACID 500 MG TABLET PO SCH (08:22)
[2021-07-03] MEDS: LORazepam 2 MG TABLET PO PRN ×2 (08:22→13:40)
[2021-07-03 08:31] VITALS: BP 148/86
[2021-07-03] MEDS ORDERED: ASCORBIC ACID 500 MG TABLET PO SCH (09:00)
[2021-07-03] MEDS: INSULIN GLARGINE,HUM.REC.ANLOG 100 UNITS/ML SQ SCH ×2 (09:52→17:01)
[2021-07-03 11:39] LABS: GLUCOMETER DEV NAME(LOC) 3EX.; GLUCOSE,POINT OF CARE 231 MG/DL (70-110)
[2021-07-03 16:03] VITALS: BP 123/78
[2021-07-03 17:02] LABS: GLUCOMETER DEV NAME(LOC) 3EX.; GLUCOSE,POINT OF CARE 279 MG/DL (70-110)
[2021-07-03 20:25] LABS: GLUCOMETER DEV NAME(LOC) 3EX.; GLUCOSE,POINT OF CARE 198 MG/DL (70-110)
[2021-07-04 05:25] LABS: GLUCOMETER DEV NAME(LOC) 3EX.; GLUCOSE,POINT OF CARE 253 MG/DL (70-110)
[2021-07-04] MEDS: INSULIN LISPRO 100 UNITS/ML SQ PRN ×3 (07:00→17:11)
[2021-07-04 08:00] VITALS: BP 127/85
[2021-07-04] MEDS: RisperiDONE 2 MG TABLET PO SCH ×2 (08:46→16:04)
[2021-07-04] MEDS: CEPHALEXIN MONOHYDRATE 500 MG CAPSULE PO SCH ×4 (08:46→20:05)
[2021-07-04] MEDS: ASCORBIC ACID 500 MG TABLET PO SCH (08:46)
[2021-07-04] MEDS: INSULIN GLARGINE,HUM.REC.ANLOG 100 UNITS/ML SQ SCH ×2 (08:49→17:11)
[2021-07-04 13:02] LABS: GLUCOMETER DEV NAME(LOC) 3EX.; GLUCOSE,POINT OF CARE 312 MG/DL (70-110)
[2021-07-04 16:01] VITALS: BP 133/94
[2021-07-04] MEDS: MUPIROCIN CALCIUM 2% 22 GM OINTMENT TP SCH (16:06)
[2021-07-04 16:45] LABS: GLUCOMETER DEV NAME(LOC) 3EX.; GLUCOSE,POINT OF CARE 214 MG/DL (70-110)
[2021-07-04 20:05] VITALS: BP 128/85
[2021-07-04] MEDS: LORazepam 2 MG TABLET PO PRN (20:05)
[2021-07-05] MEDS: LORazepam 2 MG TABLET PO PRN (09:43)
[2021-07-05] MEDS: ASCORBIC ACID 500 MG TABLET PO SCH (09:43)
[2021-07-05] MEDS: RisperiDONE 2 MG TABLET PO SCH ×2 (09:43→16:25)
[2021-07-05] MEDS: CEPHALEXIN MONOHYDRATE 500 MG CAPSULE PO SCH ×4 (09:43→21:03)
[2021-07-05] MEDS: MUPIROCIN CALCIUM 2% 22 GM OINTMENT TP SCH ×2 (09:43→16:25)
[2021-07-05] MEDS: INSULIN GLARGINE,HUM.REC.ANLOG 100 UNITS/ML SQ SCH ×2 (09:44→17:00)
[2021-07-05 09:54] LABS: GLUCOMETER DEV NAME(LOC) 3EX.; GLUCOSE,POINT OF CARE 243 MG/DL (70-110)
[2021-07-06] MEDS: CEPHALEXIN MONOHYDRATE 500 MG CAPSULE PO SCH ×4 (09:07→21:00)
[2021-07-06] MEDS: RisperiDONE 2 MG TABLET PO SCH ×2 (09:07→16:13)
[2021-07-06] MEDS: MUPIROCIN CALCIUM 2% 22 GM OINTMENT TP SCH ×2 (09:14→17:04)
[2021-07-06] MEDS: ASCORBIC ACID 500 MG TABLET PO SCH (09:14)
[2021-07-06] MEDS: INSULIN GLARGINE,HUM.REC.ANLOG 100 UNITS/ML SQ SCH ×2 (09:22→17:06)
[2021-07-06 09:29] LABS: GLUCOMETER DEV NAME(LOC) 3EX.; GLUCOSE,POINT OF CARE 276 MG/DL (70-110)
[2021-07-06 11:51] LABS: GLUCOMETER DEV NAME(LOC) 3EX.; GLUCOSE,POINT OF CARE 235 MG/DL (70-110)
[2021-07-06] MEDS: INSULIN LISPRO 100 UNITS/ML SQ PRN ×2 (12:29→17:06)
[2021-07-06] MEDS: LORazepam 2 MG TABLET PO PRN ×2 (13:03→19:09)
[2021-07-06 16:43] LABS: GLUCOMETER DEV NAME(LOC) 3EX.; GLUCOSE,POINT OF CARE 194 MG/DL (70-110)
[2021-07-06 16:49] VITALS: BP 115/79
[2021-07-07 02:31] VITALS: BP 126/82
[2021-07-07] MEDS: ZOLPIDEM TARTRATE 10 MG TABLET PO PRN (02:36)
[2021-07-07] MEDS: CEPHALEXIN MONOHYDRATE 500 MG CAPSULE PO SCH ×4 (10:36→20:01)
[2021-07-07] MEDS: ASCORBIC ACID 500 MG TABLET PO SCH (10:37)
[2021-07-07] MEDS: MUPIROCIN CALCIUM 2% 22 GM OINTMENT TP SCH ×2 (10:37→16:23)
[2021-07-07] MEDS: LORazepam 2 MG TABLET PO PRN ×3 (10:39→20:01)
[2021-07-07] MEDS: RisperiDONE 2 MG TABLET PO SCH ×2 (10:39→16:21)
[2021-07-07] MEDS: INSULIN GLARGINE,HUM.REC.ANLOG 100 UNITS/ML SQ SCH ×2 (10:41→17:59)
[2021-07-07 10:47] LABS: GLUCOMETER DEV NAME(LOC) 3EX.; GLUCOSE,POINT OF CARE 254 MG/DL (70-110)
[2021-07-07 11:50] LABS: GLUCOMETER DEV NAME(LOC) 3EX.; GLUCOSE,POINT OF CARE 222 MG/DL (70-110)
[2021-07-07] MEDS: INSULIN LISPRO 100 UNITS/ML SQ PRN ×2 (11:53→17:59)
[2021-07-07 15:07] LABS: COVID AG,FIA SOURCE NASAL SWAB
[2021-07-07 17:07] VITALS: BP 139/90
[2021-07-07 17:12] LABS: GLUCOMETER DEV NAME(LOC) 3EX.; GLUCOSE,POINT OF CARE 184 MG/DL (70-110)
[2021-07-08] MEDS: CEPHALEXIN MONOHYDRATE 500 MG CAPSULE PO SCH ×4 (10:18→20:09)
[2021-07-08] MEDS: RisperiDONE 2 MG TABLET PO SCH ×2 (10:18→16:09)
[2021-07-08] MEDS: ASCORBIC ACID 500 MG TABLET PO SCH (10:19)
[2021-07-08] MEDS: MUPIROCIN CALCIUM 2% 22 GM OINTMENT TP SCH ×2 (10:19→16:10)
[2021-07-08 11:39] LABS: GLUCOMETER DEV NAME(LOC) 3EX.; GLUCOSE,POINT OF CARE 144 MG/DL (70-110)
[2021-07-08] MEDS: INSULIN GLARGINE,HUM.REC.ANLOG 100 UNITS/ML SQ SCH ×2 (11:50→17:59)
[2021-07-08] MEDS: INSULIN LISPRO 100 UNITS/ML SQ PRN ×2 (11:51→18:00)
[2021-07-08 12:45] VITALS: BP 118/68
[2021-07-08] MEDS: LORazepam 2 MG TABLET PO PRN ×3 (12:50→21:04)
[2021-07-08 13:55] VITALS: BP 138/70
[2021-07-08 16:22] VITALS: BP 140/89
[2021-07-08 17:00] VITALS: BP 142/78
[2021-07-08 17:14] LABS: GLUCOMETER DEV NAME(LOC) 3EX.; GLUCOSE,POINT OF CARE 236 MG/DL (70-110)
[2021-07-08 21:04] VITALS: BP 138/69
[2021-07-09] MEDS: ZOLPIDEM TARTRATE 10 MG TABLET PO PRN (00:39)
[2021-07-09] MEDS: LORazepam 2 MG TABLET PO PRN ×4 (02:20→19:28)
[2021-07-09 02:24] VITALS: BP 145/92
[2021-07-09] MEDS: HALOPERIDOL 5 MG TABLET PO PRN (06:14)
[2021-07-09] MEDS: MUPIROCIN CALCIUM 2% 22 GM OINTMENT TP SCH (08:09)
[2021-07-09] MEDS: RisperiDONE 2 MG TABLET PO SCH ×2 (08:09→16:12)
[2021-07-09] MEDS: ASCORBIC ACID 500 MG TABLET PO SCH (08:09)
[2021-07-09] MEDS: INSULIN GLARGINE,HUM.REC.ANLOG 100 UNITS/ML SQ SCH ×2 (08:16→17:00)
[2021-07-09] MEDS: INSULIN LISPRO 100 UNITS/ML SQ PRN ×3 (08:20→21:32)
[2021-07-09 08:32] LABS: GLUCOMETER DEV NAME(LOC) 3EX.; GLUCOSE,POINT OF CARE 173 MG/DL (70-110)
[2021-07-09 11:13] LABS: GLUCOMETER DEV NAME(LOC) 3EX.; GLUCOSE,POINT OF CARE 144 MG/DL (70-110)
[2021-07-09 18:43] LABS: GLUCOMETER DEV NAME(LOC) 3EX.; GLUCOSE,POINT OF CARE 142 MG/DL (70-110)
[2021-07-09 19:52] LABS: GLUCOMETER DEV NAME(LOC) 3EX.; GLUCOSE,POINT OF CARE 330 MG/DL (70-110)
[2021-07-10] MEDS: LORazepam 2 MG TABLET PO PRN ×5 (03:56→21:13)
[2021-07-10] MEDS: HALOPERIDOL 5 MG TABLET PO PRN (03:56)
[2021-07-10 08:16] LABS: GLUCOMETER DEV NAME(LOC) 3EX.; GLUCOSE,POINT OF CARE 157 MG/DL (70-110)
[2021-07-10] MEDS: RisperiDONE 2 MG TABLET PO SCH ×2 (08:25→17:18)
[2021-07-10] MEDS: MULTIVITAMINS WITH MINERALS, THERAPEUTIC TABLET PO SCH (08:25)
[2021-07-10] MEDS: ASCORBIC ACID 500 MG TABLET PO SCH (08:26)
[2021-07-10] MEDS: INSULIN GLARGINE,HUM.REC.ANLOG 100 UNITS/ML SQ SCH ×2 (10:13→17:20)
[2021-07-10] MEDS: INSULIN LISPRO 100 UNITS/ML SQ PRN ×2 (11:40→17:21)
[2021-07-10 11:43] LABS: GLUCOMETER DEV NAME(LOC) 3EX.; GLUCOSE,POINT OF CARE 270 MG/DL (70-110)
[2021-07-10 16:15] VITALS: BP 113/79
[2021-07-10 16:30] VITALS: BP 133/84
[2021-07-10 16:45] VITALS: BP 131/88
[2021-07-10 17:10] LABS: GLUCOMETER DEV NAME(LOC) 3EX.; GLUCOSE,POINT OF CARE 219 MG/DL (70-110)
[2021-07-10 17:15] VITALS: BP 130/80
[2021-07-10 17:45] VITALS: BP 140/84
[2021-07-11 08:37] LABS: GLUCOMETER DEV NAME(LOC) 3EX.; GLUCOSE,POINT OF CARE 218 MG/DL (70-110)
[2021-07-11] MEDS: RisperiDONE 2 MG TABLET PO SCH ×2 (08:39→16:17)
[2021-07-11] MEDS: MULTIVITAMINS WITH MINERALS, THERAPEUTIC TABLET PO SCH (08:39)
[2021-07-11] MEDS: ASCORBIC ACID 500 MG TABLET PO SCH (08:40)
[2021-07-11] MEDS: INSULIN GLARGINE,HUM.REC.ANLOG 100 UNITS/ML SQ SCH ×2 (08:42→17:42)
[2021-07-11] MEDS: LORazepam 2 MG TABLET PO PRN ×2 (08:52→15:41)
[2021-07-11] MEDS: INSULIN LISPRO 100 UNITS/ML SQ PRN ×2 (12:15→17:42)
[2021-07-11] MEDS ORDERED: MULT-1239 PO (13:28)
[2021-07-11] MEDS ORDERED: RISP2TAB45 PO (13:28)
[2021-07-11] MEDS ORDERED: INSLAN SQ (13:28)
[2021-07-11 15:41] VITALS: BP 134/71
[2021-07-11 16:32] LABS: GLUCOMETER DEV NAME(LOC) 3EX.; GLUCOSE,POINT OF CARE 193 MG/DL (70-110)
[2021-07-11] MEDS: HALOPERIDOL 5 MG TABLET PO PRN (17:44)
[2021-07-12] MEDS: MULTIVITAMINS WITH MINERALS, THERAPEUTIC TABLET PO SCH (07:59)
[2021-07-12] MEDS: ASCORBIC ACID 500 MG TABLET PO SCH (07:59)
[2021-07-12] MEDS: RisperiDONE 2 MG TABLET PO SCH (07:59)
[2021-07-12] MEDS: LORazepam 2 MG TABLET PO PRN (08:00)
[2021-07-12] MEDS: INSULIN GLARGINE,HUM.REC.ANLOG 100 UNITS/ML SQ SCH (09:00)
== END 2021-07-12 10:45 | DRG 750 ==
LOC: EMS 16:31 → 3EI 22:00 → UNDOADMIN 22:00
DX: F25.0 Schizoaffective disorder, bipolar type (principal); D64.9 Anemia, unspecified; Z91.14 Patient's other noncompliance with medication regimen; E11.65 Type 2 diabetes mellitus with hyperglycemia; E66.9 Obesity, unspecified; F10.10 Alcohol abuse, uncomplicated; F15.90 Other stimulant use, unspecified, uncomplicated; F41.9 Anxiety disorder, unspecified; Z20.822 Contact with and (suspected) exposure to COVID-19; F32.9 Major depressive disorder, single episode, unspecified; F90.9 Attention-deficit hyperactivity disorder, unspecified type; F17.200 Nicotine dependence, unspecified, uncomplicated; G47.00 Insomnia, unspecified; Z79.4 Long term (current) use of insulin; Z79.899 Other long term (current) drug therapy; Z89.511 Acquired absence of right leg below knee; Z89.512 Acquired absence of left leg below knee
CPT/HCPCS: 80053; 80061; 82962; 85025; 87081; 99285; G0480; J1815